=== PATIENT | male | born 1975 | race Two or more races ===

== ENCOUNTER 2019-12-11 18:06 | Emergency (ER) | payer OTHER ==
[2019-12-11 18:15] VITALS: BP 109/89; PULSE 89; TEMP 98.6; BMI 23.6
[2019-12-11] MEDS ORDERED: KETOROLAC TROMETHAMINE 30 MG/1 ML VIAL IM ONE (18:57)
[2019-12-11] MEDS ORDERED: KETOROLAC TROMETHAMINE 30 MG/1 ML VIAL ONE (19:16)
--- NOTE | 2019-12-11 20:03 | PDOC ---
History of Present Illness - General Chief Complaint: Pain Stated Complaint: LS KNEE PAIN Time Seen by Provider: 12/11/19 18:25 History Source: Patient Exam Limitations: No Limitations - History of Present Illness Initial Comments: 12/11/19 19:58 44-year-old male denies past medical history complains of left knee pain which began after he was kneeling for 3 hours today. Denies direct trauma or any other injuries. Denies taking any pain medication today. ROS: as above PE: GENERAL: well-appearing, NAD HEAD: NCAT EYES: Pupils equal, round and reactive to light, sclera anicteric, conjunctiva clear ENT: pharynx: no erythema, no exudate, uvula midline NECK: supple CHEST: nontender RESP: clear, no w/r/r CARDIO: rrr, no m/g/r ABD: +BS, soft, nontender, non distended BACK: no midline spinal ttp, no CVAT EXTREMITIES: Decreased range of motion of left knee due to pain, no bony tenderness to palpation, no swelling noted, no ecchymosis noted, no laxity NEUROLOGICAL: Normal speech, walking with slight limp SKIN: Warm, Dry Is this a multiple visit Asthma Patient?: No Past History - Medical History Allergies/Adverse Reactions: Allergies Allergy/AdvReac Type Severity Reaction Status Date / Time No Known Allergies Allergy Unverified 12/11/19 18:14 COPD: No - Psycho-Social/Smoking History Smoking History: Current every day smoker Have you smoked in the past 12 months: Yes Number of Cigarettes Smoked Daily: 10 Information on smoking cessation initiated: No - Substance Abuse Hx (Audit-C & DAST Scrn) How often the patient has a drink containing alcohol: Never Score: In Men: 4 or > Positive; In Women: 3 or > Positive: 0 Screen Result (Pos requires Nsg. Audit-10AR): Negative In the last yr the pt used illegal drug/Rx for NonMed reason: No Score: Yes response is considered Positive: 0 Screen Result (Positive result requires Nsg. DAST-10): Negative *Physical Exam - Vital Signs Last Vital Signs Temp Pulse Resp BP Pulse Ox 98.6 F 89 21 H 109/89 100 12/11/19 18:09 12/11/19 18:12/11/19 18:12/11/19 18:12/11/19 18:09 ED Treatment Course - RADIOLOGY Radiology Studies Ordered: Category Date Time Status KNEE 3 POS-LEFT [RAD] Stat Radiology 12/11/19 18:57 Taken - Medications Given in the ED: ED Medications Discontinued Medications Generic Name Dose Route Start Last Admin Trade Name Alejandrina PRN Reason Stop Dose Admin Ketorolac Tromethamine 30 mg 12/11/19 18:57 12/11/19 19:21 Toradol Injection - IM 12/11/19 18:58 30 mg ONCE ONE Administration Medical Decision Making - Medical Decision Making 12/11/19 19:59 44-year-old male denies past medical history complains of left knee pain which began after he was kneeling for 3 hours today. Denies direct trauma or any other injuries. Denies taking any pain medication today. L knee xray ordered Toradol 30 mg IM x 1 dose 12/11/19 20:53 Left x-ray no acute fracture on my wet read Patient feels some improvement after Toradol Crutches provided Advised patient to follow-up with orthopedics within 1 week Discharge - Discharge Information Problems reviewed: Yes Clinical Impression/Diagnosis: Left knee pain Qualifiers: Chronicity: acute Qualified Code(s): M25.562 - Pain in left knee Condition: Stable Disposition: HOME - Admission No - Follow up/Referral Referrals: Kenan Nickerson MD [Staff Physician] - - Patient Discharge Instructions Additional Instructions: Alternate between acetaminophen 975 mg and ibuprofen 600 mg every 6 hours as needed for pain Keep knee Ramirez bandage for comfort Use crutches Follow-up with orthopedics within 1 week - Post Discharge Activity
== END 2019-12-11 20:59 | disposition home or self-care (01) ==
LOC: JERFT 18:06
PROC: 3E0233Z Introduction of Anti-inflammatory into Muscle, Percutaneous Approach (ICD-10-PCS; principal; 2019-12-11)
DX: M25.562 Pain in left knee (principal)
CPT/HCPCS: 73562-TC-LT-FY; 99284-25